=== PATIENT | female | born 1990 | race Caucasian/White ===

== ENCOUNTER 2018-09-14 22:41 | Emergency (ER) | payer OTHER ==
[2018-09-14 23:50] VITALS: BP 98/77
[2018-09-15 01:20] LABS: HCG Qualitative,Urine Negative (Negative)
--- NOTE | 2018-09-15 01:47 | XRay Report ---
PROCEDURE: XR CHEST 1V AP TECHNIQUE: Chest radiograph single view. HISTORY: EV, cough COMPARISONS: None . FINDINGS: Heart: Normal. Mediastinum/Vessels: Normal. Lungs/Pleural space: The lungs are expanded. There is a faint left perihilar pulmonary infiltrate. T here are no effusions or pneumothoraces.. Bony thorax: No acute osseous abnormality. Life support devices: None. IMPRESSION: The heart size is normal.. The lungs are expanded. There is a faint left perihilar pulmonary infiltrate. There are no effusions or pneumothoraces.. This document is electronically signed by Mehdi Davenport MD., September 15 2018 01:45:33 AM ET
[2018-09-15] MEDS ORDERED: IBUPROFEN PO ONE (03:46)
--- NOTE | 2018-09-15 03:57 | Emergency Department Report ---
- General Chief Complaint: Dyspnea/Respdistress Stated Complaint: EV Time Seen by Provider: 09/15/18 03:00 Source: patient Mode of arrival: Ambulatory Limitations: No Limitations - History of Present Illness Initial Comments: 28-year-old female presents with body aches, runny nose, coughing for the past 2 days. Patient states fever chills as well. Patient states coughing some yellow productive. Patient also states that she feels generalized body aches. She denies nausea vomiting chest pain, abdominal pain and no other symptoms. MD Complaint: cough, nasal congestion Severity: mild Severity scale (0 -10): 5 Quality: aching Consistency: constant Worsens With: nothing Associated Symptoms: fever, myalgias, cough - Related Data Previous Rx's Medication Instructions Recorded Last Taken Type ALBUTEROL Inhaler(NF) [VENTOLIN 1 puff IH TID #1 inha 09/15/18 Unknown Rx Inhaler(NF)] Azithromycin [Zithromax TAB] 500 mg PO QDAY #7 tablet 09/15/18 Unknown Rx Ibuprofen [Motrin 800 MG tab] 800 mg PO TID #30 tablet 09/15/18 Unknown Rx guaiFENesin [Robitussin] 200 mg PO Q4HR #80 ml 09/15/18 Unknown Rx Allergies Allergy/AdvReac Type Severity Reaction Status Date / Time banana Allergy Itching Verified 09/14/18 22:47 coconut Allergy Itching Verified 09/14/18 22:47 ED Review of Systems ROS: Stated complaint: EV Other details as noted in HPI Comment: All other systems reviewed and negative Respiratory: cough Cardiovascular: denies: chest pain, palpitations, dyspnea on exertion ED Past Medical Hx - Past Medical History Hx Hypertension: Yes Hx Diabetes: Yes Hx Liver Disease: Yes (?) - Surgical History Past Surgical History?: No - Social History Smoking Status: Never Smoker Substance Use Type: None - Medications Home Medications: Home Medications Medication Instructions Recorded Confirmed Last Taken Type ALBUTEROL Inhaler(NF) [VENTOLIN 1 puff IH TID #1 inha 09/15/18 Unknown Rx Inhaler(NF)] Azithromycin [Zithromax TAB] 500 mg PO QDAY #7 tablet 09/15/18 Unknown Rx Ibuprofen [Motrin 800 MG tab] 800 mg PO TID #30 tablet 09/15/18 Unknown Rx guaiFENesin [Robitussin] 200 mg PO Q4HR #80 ml 09/15/18 Unknown Rx ED Physical Exam - General Limitations: No Limitations General appearance: alert, in no apparent distress - Head Head exam: Present: atraumatic, normocephalic - Eye Eye exam: Present: normal appearance - ENT ENT exam: Present: mucous membranes moist - Neck Neck exam: Present: normal inspection, full ROM - Respiratory Respiratory exam: Present: normal lung sounds bilaterally. Absent: respiratory distress, wheezes, rales, rhonchi, chest wall tenderness, accessory muscle use - Cardiovascular Cardiovascular Exam: Present: regular rate, normal rhythm. Absent: systolic murmur, diastolic murmur, rubs, gallop - GI/Abdominal GI/Abdominal exam: Present: soft, normal bowel sounds. Absent: distended, tenderness - Extremities Exam Extremities exam: Present: normal inspection - Back Exam Back exam: Present: normal inspection - Neurological Exam Neurological exam: Present: alert, oriented X3 - Psychiatric Psychiatric exam: Present: normal affect, normal mood - Skin Skin exam: Present: warm, dry, intact, normal color. Absent: rash ED Course Vital Signs 09/14/18 23:44 Temperature 97.8 F Pulse Rate 85 Respiratory 20 Rate Blood Pressure 98/77 O2 Sat by Pulse 98 Oximetry ED Medical Decision Making - Radiology Data Radiology results: report reviewed, image reviewed Mild perihilar infiltrate noted. - Medical Decision Making 28 year-old female presents with upper respiratory infection possibly pneumonia based on chest x-ray findings. Discussed results the patient. Discussed the patient will go home on antibiotics. Discussed admission or follow-up with her primary care physician. Patient is in no respiratory acute distress. Critical care attestation.: If time is entered above; I have spent that time in minutes in the direct care of this critically ill patient, excluding procedure time. ED Disposition Clinical Impression: Upper respiratory infection Disposition: DC-01 TO HOME OR SELFCARE Is pt being admited?: No Does the pt Need Aspirin: No Condition: Stable Instructions: Community-acquired Pneumonia (ED), Bacterial Pneumonia (ED), Upper Respiratory Infection (ED) Additional Instructions: Make sure to follow up with the primary care physician as discussed. Take all your medications as you've been prescribed. If you have any worsening symptoms or develop new symptoms please return to ED immediately. Prescriptions: Ibuprofen [Motrin 800 MG tab] 800 mg PO TID #30 tablet guaiFENesin [Robitussin] 200 mg PO Q4HR #80 ml ALBUTEROL Inhaler(NF) [VENTOLIN Inhaler(NF)] 1 puff IH TID #1 inha Azithromycin [Zithromax TAB] 500 mg PO QDAY #7 tablet Referrals: JENNA GHOTRA MD [Referring] - 3-5 Days Forms: Work/School Release Form(ED) Time of Disposition: 04:05
== END 2018-09-15 04:20 | disposition home or self-care (01) ==
LOC: ED 22:41
DX: J06.9 Acute upper respiratory infection, unspecified (principal); I10 Essential (primary) hypertension; E11.9 Type 2 diabetes mellitus without complications; Z91.018 Allergy to other foods
CPT/HCPCS: 71045; 81025; 99283

== ENCOUNTER 2019-01-05 21:08 | Emergency (ER) | payer OTHER ==
--- NOTE | 2019-01-05 21:29 | Event Note ---
ED Screening Note Date of service: 01/05/19 Time: 21:27 ED Screening Note: 28 y/o female n/v with dysuria. Feels like a bubble in her rectum. This initial assessment/diagnostic orders/clinical plan/treatment(s) is/are subject to change based on patients health status, clinical progression and re- assessment by fellow clinical providers in the ED. Further treatment and workup at subsequent clinical providers discretion. Patient/guardian urged not to elope from the ED as their condition may be serious if not clinically assessed and managed. Initial orders include:
[2019-01-05 22:42] LABS: Bacteria,Urine 1+ /HPF (Negative); Bilirubin,Urine NEG (Negative); Blood,Urine SM (Negative); Color,Urine Yellow (Yellow); Mucus,Urine FEW /HPF; Protein,Urine <15 mg/dL mg/dL (Negative); Urobilinogen,Urine < 2.0 mg/dL (<2.0)
--- NOTE | 2019-01-06 00:07 | Emergency Department Report ---
ED Abdominal Pain HPI - General Chief Complaint: Abdominal Pain Stated Complaint: ABD PAIN, VAGINAL DISCARGE WITH BURNING,POSS PREG Time Seen by Provider: 01/06/19 00:00 Source: patient Mode of arrival: Ambulatory Limitations: No Limitations - History of Present Illness Initial Comments: Malou is a 28 yo female who presents with abdominal pain, vaginal itching. The vaginal itching is accompanied for clear discharge. She has had epigastric abdominal pain for several hours. No fever. No vomiting. LMP December 20. Complaint: abdominal pain -: Gradual, This morning Location: epigastric Severity scale (0 -10): 4 Quality: aching Consistency: constant Improves With: nothing Worsens With: nothing Associated Symptoms: other (clear vaginal discharge) - Related Data LMP Date: 12/20/18 Previous Rx's Medication Instructions Recorded Last Taken Type ALBUTEROL Inhaler(NF) [VENTOLIN 1 puff IH TID #1 inha 09/15/18 Unknown Rx Inhaler(NF)] Azithromycin [Zithromax TAB] 500 mg PO QDAY #7 tablet 09/15/18 Unknown Rx Ibuprofen [Motrin 800 MG tab] 800 mg PO TID #30 tablet 09/15/18 Unknown Rx guaiFENesin [Robitussin] 200 mg PO Q4HR #80 ml 09/15/18 Unknown Rx Famotidine [Pepcid] 20 mg PO BID 10 Days #20 tablet 01/06/19 Unknown Rx Miconazole 2% [Monistat] 1 applicator VG QHS 7 Days #7 tube 01/06/19 Unknown Rx metroNIDAZOLE [Flagyl] 500 mg PO Q12HR 7 Days #14 tab 01/06/19 Unknown Rx Allergies Allergy/AdvReac Type Severity Reaction Status Date / Time banana Allergy Itching Verified 01/05/19 21:24 coconut Allergy Itching Verified 01/05/19 21:24 ED Review of Systems ROS: Stated complaint: ABD PAIN, VAGINAL DISCARGE WITH BURNING,POSS PREG Other details as noted in HPI Comment: All other systems reviewed and negative Constitutional: denies: fever, malaise Cardiovascular: denies: chest pain Gastrointestinal: abdominal pain Genitourinary: discharge ED Past Medical Hx - Past Medical History Previous Medical History?: Yes Hx Hypertension: Yes Hx Diabetes: Yes Hx Liver Disease: Yes (?) - Social History Smoking Status: Never Smoker Substance Use Type: None - Medications Home Medications: Home Medications Medication Instructions Recorded Confirmed Last Taken Type ALBUTEROL Inhaler(NF) [VENTOLIN 1 puff IH TID #1 inha 09/15/18 Unknown Rx Inhaler(NF)] Azithromycin [Zithromax TAB] 500 mg PO QDAY #7 tablet 09/15/18 Unknown Rx Ibuprofen [Motrin 800 MG tab] 800 mg PO TID #30 tablet 09/15/18 Unknown Rx guaiFENesin [Robitussin] 200 mg PO Q4HR #80 ml 09/15/18 Unknown Rx Famotidine [Pepcid] 20 mg PO BID 10 Days #20 tablet 01/06/19 Unknown Rx Miconazole 2% [Monistat] 1 applicator VG QHS 7 Days #7 tube 01/06/19 Unknown Rx metroNIDAZOLE [Flagyl] 500 mg PO Q12HR 7 Days #14 tab 01/06/19 Unknown Rx ED Physical Exam - General Limitations: No Limitations General appearance: alert, in no apparent distress - Head Head exam: Present: atraumatic, normocephalic - Eye Eye exam: Present: normal appearance - ENT ENT exam: Present: mucous membranes moist - Neck Neck exam: Present: normal inspection, full ROM - Respiratory Respiratory exam: Present: normal lung sounds bilaterally. Absent: respiratory distress, wheezes, rales, rhonchi - Cardiovascular Cardiovascular Exam: Present: regular rate, normal rhythm, normal heart sounds. Absent: systolic murmur, diastolic murmur, rubs, gallop - GI/Abdominal GI/Abdominal exam: Present: soft, normal bowel sounds. Absent: distended, tenderness, guarding, rebound - Extremities Exam Extremities exam: Present: normal inspection - Back Exam Back exam: Present: normal inspection - Neurological Exam Neurological exam: Present: alert, oriented X3 - Psychiatric Psychiatric exam: Present: normal affect, normal mood - Skin Skin exam: Present: warm, dry, intact, normal color. Absent: rash ED Course Vital Signs 01/05/19 01/05/19 01/05/19 21:24 23:55 23:57 Temperature 97.3 F L Pulse Rate 84 91 H Respiratory 18 16 Rate Blood Pressure 153/94 Blood Pressure 171/101 [Right] O2 Sat by Pulse 100 100 100 Oximetry 01/05/19 01/06/19 23:58 00:00 Temperature Pulse Rate Respiratory 16 Rate Blood Pressure 145/85 Blood Pressure [Right] O2 Sat by Pulse 100 100 Oximetry ED Medical Decision Making - Lab Data Laboratory Results - last 24 hr 01/05/19 Unknown Urine Color Yellow Urine Turbidity Slightly-cloudy Urine pH 5.0 Ur Specific [place] 1.028 Urine Protein <15 mg/dl Urine Glucose (UA) 50 Urine Ketones Neg Urine Blood Sm Urine Nitrite Neg Urine Bilirubin Neg Urine Urobilinogen < 2.0 Ur Leukocyte Esterase Lg Urine WBC (Auto) 8.0 H Urine RBC (Auto) 10.0 U Epithel Cells (Auto) 12.0 Urine Bacteria (Auto) 1+ Urine Mucus Few Laboratory Results - last 24 hr 01/05/19 01/06/19 Unknown 00:13 Urine Color Yellow Urine Turbidity Slightly-cloudy Urine pH 5.0 Ur Specific [place] 1.028 Urine Protein <15 mg/dl Urine Glucose (UA) 50 Urine Ketones Neg Urine Blood Sm Urine Nitrite Neg Urine Bilirubin Neg Urine Urobilinogen < 2.0 Ur Leukocyte Esterase Lg Urine WBC (Auto) 8.0 H Urine RBC (Auto) 10.0 U Epithel Cells (Auto) 12.0 Urine Bacteria (Auto) 1+ Urine Mucus Few Urine HCG, Qual Negative - Medical Decision Making Malou presents with abdominal pain and vaginal discharge. Rx: monistat and flagyl Rx: famotidine dc'd home Upon reassessment, Malou had multiple concerns including a lesion on her vagina. I explained that she does not have a life threatening emergency. She is advised to f/u with clinic to which she was referred. She was initally displeased with her 2 hour wait. She is not displeased with the care provided. She was given return precautions. Critical care attestation.: If time is entered above; I have spent that time in minutes in the direct care of this critically ill patient, excluding procedure time. ED Disposition Clinical Impression: Vaginitis, Abdominal pain Disposition: DC-01 TO HOME OR SELFCARE Is pt being admited?: No Does the pt Need Aspirin: No Condition: Stable Instructions: Vaginitis (ED), Abdominal Pain (ED) Prescriptions: Miconazole 2% [Monistat] 1 applicator VG QHS 7 Days #7 tube metroNIDAZOLE [Flagyl] 500 mg PO Q12HR 7 Days #14 tab Famotidine [Pepcid] 20 mg PO BID 10 Days #20 tablet Referrals: [facility] MD ARI [Primary Care Provider] - 3-5 Days
[2019-01-06] MEDS ORDERED: ALUM-MAG HYDROX-SIMETH 200-200-20MG/5ML PO ONE (00:14)
[2019-01-06] MEDS ORDERED: TYLENOL PO ONE (00:14)
[2019-01-06 00:20] VITALS: BP 145/85
[2019-01-06 00:24] LABS: HCG Qualitative,Urine Negative (Negative)
[2019-01-06] MEDS ORDERED: TORADOL IM ONE (00:30)
== END 2019-01-06 00:44 | disposition home or self-care (01) ==
LOC: ED 21:08
DX: R10.13 Epigastric pain (principal); N76.0 Acute vaginitis; I10 Essential (primary) hypertension; E11.9 Type 2 diabetes mellitus without complications; Z79.899 Other long term (current) drug therapy; Z91.018 Allergy to other foods
CPT/HCPCS: 81001; 81025; 96372; 99283; J1885